=== PATIENT | male | born 1940 | race Caucasian/White ===

== ENCOUNTER 2017-01-29 05:57 | Day surgery (SDC) | payer MEDICARE, BC ==
[~2017-01-29] VITALS: Ht 182.9 cm; Wt 88.5 kg
[~2017-01-29 05:57] MED LIST: ASPIRIN E.C. 8181 MG PO; ATORVASTATIN; CLORAZEPATE7.5 MG PO; ELIQUIS 5MG PO; FISH OIL 1000MG1 CAP PO; FISH OIL500 MG PO; GLUCOSAMINE & C1 CA1 PO; LISINOPRIL20 MG PO; MASON NATURAL100 MG PO; MULTI VITAMINS1 TAB PO; NATURAL E400 IU PO; NORCO 325 MG-51 TAB PO; PEPCID 20MG TAB20 MG; PRINIVIL20 MG PO; ROXICODONE 55 MG/TAB PO; TUMS500 MG PO; TYLENOL 500MG500 MG PO; VITAMIN B COMPL1 TA1 PO; VITAMIN C500 MG PO; VITAMIN D32000 I1 PO; ZOFRAN 4MG T4 MG/TAB PO
[2017-01-29 06:57] VITALS: BP 147/74; PULSE 45; TEMP 97.5
[2017-01-29] MEDS ORDERED: ZESTRIL 10MG10 MG PO (07:07)
[2017-01-29] MEDS ORDERED: DIGESTIVE ENZYMES PO (07:16)
[2017-01-29] MEDS ORDERED: MOTRIN 400400 MG/TAB PO (08:49)
[2017-01-29] MEDS ORDERED: NORCO 325 MG-51 TAB PO (08:49)
[2017-01-29 08:50] VITALS: BP 125/58; PULSE 63; TEMP 97.5
[2017-01-29 09:05] VITALS: BP 92/49; PULSE 61
[2017-01-29 09:20] VITALS: BP 126/65; PULSE 66
[2017-01-29 09:35] VITALS: BP 125/63; PULSE 53
== END 2017-01-29 09:45 | disposition home or self-care (01) ==
LOC: SDCO 05:57
DX: C43.4 Malignant melanoma of scalp and neck (principal); I12.9 Hypertensive chronic kidney disease with stage 1 through stage 4 chronic kidney disease, or unspecified chronic kidney disease; I25.10 Atherosclerotic heart disease of native coronary artery without angina pectoris; N18.9 Chronic kidney disease, unspecified; I25.2 Old myocardial infarction; G47.33 Obstructive sleep apnea (adult) (pediatric); K21.9 Gastro-esophageal reflux disease without esophagitis; Z95.5 Presence of coronary angioplasty implant and graft; Z90.49 Acquired absence of other specified parts of digestive tract; Z85.51 Personal history of malignant neoplasm of bladder; Z84.1 Family history of disorders of kidney and ureter
CPT/HCPCS: J0690; J1100; J2405; J2704; J3010; J7120

== ENCOUNTER → 2022-03-21 | Outpatient (CLI) | payer MEDICARE, BC ==
[~2022-03-21] MED LIST changes: +DIGESTIVE ENZYMES PO; +MOTRIN 400400 MG/TAB PO; +ZESTRIL 10MG10 MG PO
== END ==
LOC: COL.RAD 15:22
DX: N18.30 Chronic kidney disease, stage 3 unspecified (principal); N28.1 Cyst of kidney, acquired; Z85.51 Personal history of malignant neoplasm of bladder

== ENCOUNTER 2023-08-27 18:00 | Outpatient (RCR) | payer MEDICARE, BC | END 2023-08-29 | disposition home or self-care (01) | LOC: COL.CR | DX: Z48.812 Encounter for surgical aftercare following surgery on the circulatory system (principal); Z95.1 Presence of aortocoronary bypass graft ==

== ENCOUNTER 2023-10-28 12:01 | Outpatient (RCR) | payer MEDICARE, BC | END 2023-10-29 | disposition home or self-care (01) | LOC: COL.CR | DX: Z48.812 Encounter for surgical aftercare following surgery on the circulatory system (principal); Z95.1 Presence of aortocoronary bypass graft ==